=== PATIENT | female | born 1985 | race Caucasian/White ===

== ENCOUNTER 2021-11-13 08:42 | Emergency (ER) | payer MEDICAID ==
[~2021-11-13] VITALS: Ht 160 cm; Wt 87.3 kg
[~2021-11-13 08:42] MED LIST: ALB0.5UD IH; BENZ1LOZ30 PO; BISA10SU60 RC; BUDE10.23 IH; CEPH-571 PO; CLA10T PO; CLIN-97 PO; FLUT10SP; HYDR-4383 PO; LEVA15HF4 IH; LIDO20SO PO; ONDA4TAB6 PO; ONDA8TAB9 PO; RANI-366 PO
[2021-11-13 12:10] VITALS: BP 114/72
[2021-11-13] MEDS ORDERED: dexamethasone 4mg tablet PO ONE (12:10)
[2021-11-13] MEDS ORDERED: ipratropium/albuterol 3ml nebule NEB PRN (12:10)
[2021-11-13] MEDS ORDERED: ALBUTEROL INHALER 1 PUFF/90 MCG INHALation IH PRN (13:20)
[2021-11-13] MEDS ORDERED: PRED20TA PO (13:43)
[2021-11-13] MEDS ORDERED: ALB0.5UD IH (13:43)
[2021-11-13] MEDS ORDERED: ATR0.5NEB IH (13:43)
== END 2021-11-13 13:54 | disposition home or self-care (01) ==
LOC: ER 08:43
DX: U07.1 COVID-19 (principal); J45.909 Unspecified asthma, uncomplicated; G89.29 Other chronic pain; M54.50 Low back pain, unspecified; F12.90 Cannabis use, unspecified, uncomplicated; Z98.51 Tubal ligation status; Z88.0 Allergy status to penicillin
CPT/HCPCS: 71045; 87811; 94640; 94760; 99284

== ENCOUNTER 2022-07-28 21:34 | Emergency (ER) | payer MEDICAID ==
[~2022-07-28] VITALS: Ht 160 cm; Wt 86.4 kg
[~2022-07-28 21:34] MED LIST changes: +ATR0.5NEB IH
[2022-07-28 21:44] VITALS: BP 182/89
[2022-07-28] MEDS ORDERED: clindamycin 150mg capsule PO ONE (22:15)
[2022-07-28] MEDS ORDERED: oxyCODONE/APAP 10/325mg tablet PO ONE (22:15)
[2022-07-28] MEDS ORDERED: ketorolac tromethamine 15mg/ml inj. IM ONE (22:15)
[2022-07-28] MEDS ORDERED: CLIN-142 PO (22:31)
[2022-07-29] MEDS ORDERED: OXYC-150 PO (15:42)
== END 2022-07-28 23:14 | disposition home or self-care (01) ==
LOC: ER 21:35
DX: K08.89 Other specified disorders of teeth and supporting structures (principal); G89.29 Other chronic pain; M54.9 Dorsalgia, unspecified; J45.909 Unspecified asthma, uncomplicated; F12.10 Cannabis abuse, uncomplicated; Z87.81 Personal history of (healed) traumatic fracture; Z88.0 Allergy status to penicillin; Z79.899 Other long term (current) drug therapy; Z79.1 Long term (current) use of non-steroidal anti-inflammatories (NSAID); Z79.2 Long term (current) use of antibiotics
CPT/HCPCS: 96372; 99283; J1885

== ENCOUNTER 2022-07-29 13:34 | Emergency (ER) | payer MEDICAID ==
[~2022-07-29] VITALS: Ht 160 cm; Wt 84.1 kg
[~2022-07-29 13:34] MED LIST changes: +CLIN-142 PO
[2022-07-29 13:39] VITALS: BP 166/102
[2022-07-29] MEDS ORDERED: oxyCODONE/APAP 10/325mg tablet PO ONE (15:30)
[2022-07-29] MEDS ORDERED: ketorolac trometh. 30mg/ml inj. IM ONE (15:30)
[2022-07-29] MEDS ORDERED: OXYC-150 PO (15:42)
[2022-07-30] MEDS ORDERED: CEPH250T PO (17:15)
[2022-07-30] MEDS ORDERED: NAPR-56 PO (17:15)
== END 2022-07-29 15:48 | disposition home or self-care (01) ==
LOC: ER 13:35
DX: K04.7 Periapical abscess without sinus (principal); K08.89 Other specified disorders of teeth and supporting structures; J45.909 Unspecified asthma, uncomplicated; F12.90 Cannabis use, unspecified, uncomplicated; Z88.0 Allergy status to penicillin; Z98.51 Tubal ligation status
CPT/HCPCS: 96372; 99283; J1885

== ENCOUNTER 2022-07-30 15:51 | Emergency (ER) | payer MEDICAID ==
[~2022-07-30] VITALS: Ht 160 cm; Wt 88.6 kg
[~2022-07-30 15:51] MED LIST changes: +OXYC-150 PO
[2022-07-30 16:01] VITALS: BP 148/98
[2022-07-30] MEDS ORDERED: NAPR-56 PO (17:15)
[2022-07-30] MEDS ORDERED: CEPH250T PO (17:15)
== END 2022-07-30 17:24 | disposition home or self-care (01) ==
LOC: ER 15:52
DX: K04.7 Periapical abscess without sinus (principal); J45.909 Unspecified asthma, uncomplicated; G89.29 Other chronic pain; F12.90 Cannabis use, unspecified, uncomplicated; Z72.89 Other problems related to lifestyle; Z98.51 Tubal ligation status; Z88.0 Allergy status to penicillin; Z79.899 Other long term (current) drug therapy
CPT/HCPCS: 99283

== ENCOUNTER 2023-07-23 19:58 | Emergency (ER) | payer MEDICAID ==
[~2023-07-23] VITALS: Ht 160 cm; Wt 75.0 kg
[~2023-07-23 19:58] MED LIST changes: -CLIN-142 PO
[2023-07-23 20:36] VITALS: BP 116/85; PULSE 107; RESP 18; TEMP 98.3; O2SAT 97
== END 2023-07-23 23:06 | disposition left against medical advice (07) ==
LOC: ER 19:59
DX: K04.7 Periapical abscess without sinus (principal); Z53.21 Procedure and treatment not carried out due to patient leaving prior to being seen by health care provider

== ENCOUNTER 2024-07-10 15:42 | Emergency (ER) | payer MEDICAID ==
[~2024-07-10] VITALS: Ht 160 cm; Wt 78.1 kg
[2024-07-10 15:53] VITALS: BP 117/77; PULSE 68; RESP 16; TEMP 98.4; O2SAT 98
[2024-07-10] MEDS ORDERED: AZIT250T29 PO (16:52)
[2024-07-10] MEDS: azithromycin 250mg tablet PO ONE (16:54)
== END 2024-07-10 17:05 | disposition home or self-care (01) ==
LOC: ER 15:42
DX: K04.7 Periapical abscess without sinus (principal); J45.909 Unspecified asthma, uncomplicated; F12.90 Cannabis use, unspecified, uncomplicated; Z88.0 Allergy status to penicillin; Z88.1 Allergy status to other antibiotic agents; Z88.8 Allergy status to other drugs, medicaments and biological substances; Z98.51 Tubal ligation status
CPT/HCPCS: 99283

== ENCOUNTER 2024-12-07 09:53 | Emergency (ER) | payer MEDICAID ==
[~2024-12-07] VITALS: Ht 160 cm; Wt 77.3 kg
[~2024-12-07 09:53] MED LIST changes: +CLIN-224 PO; -CLIN-97 PO
[2024-12-07 10:07] VITALS: BP 140/89; PULSE 92; RESP 16; O2SAT 99
[2024-12-07] MEDS ORDERED: CLIN300C3 PO (11:40)
--- NOTE | 2024-12-07 11:40 | Physician Documentation ---
HPI ~ General Chief Complaint: Tooth Problem Stated Complaint: TOOTH PAIN Time Seen by MD: 10:47 Primary Medical Doctor: vivienne lopez History of Present Illness HPI Comment 39-year-old female presents to the ED with a complaint of tooth infection secondary to previous carry and general poor dentition. She denies any nausea or vomiting or fevers. Medication Reconciliation Allergies: Coded Allergies: Penicillins (Verified Allergy, Unknown, 12/07/24) cephalexin (Unverified Allergy, Unknown, 12/07/24) Scheduled Albuterol Sulfate Nebs* (Proventil Nebs*), 2.5 MG IH Q4H, (Reported) Bisacodyl (Dulcolax), 1 SUPP RC DAILY Cephalexin (Keflex), 1 CAP PO Q6H Clindamycin HCL* (Clindamycin HCL*), 1 CAP PO Q6H Clindamycin HCL* (Clindamycin HCL*), 1 CAP PO Q6H Ipratropium Nelson (Atrovent Neb), 0.5 MG IH Q4H Levalbuterol Tartrate* (Xopenex Inhaler*), 2 PUFF IH Q4H, (Reported) Lidocaine Hcl (Lidocaine Hcl Viscous), 15 ML PO Q6H Loratadine* (Claritin*), 10 MG PO DAILY, (Reported) Ondansetron (Zofran Odt), 4 MG PO QID Ranitidine Hcl (Zantac), 150 MG PO DAILY Scheduled PRN Benzocaine/Menthol (Chloraseptic Sore Throat Lozng), 1 SABRINA PO Q2H PRN for throat pain Hydrocodone/Acetaminophen ([place] 5-325 Tablet), 1 TABLET PO TID PRN for pain Ondansetron Hcl (Zofran), 1 TAB PO Q6H PRN for nausea Oxycodone HCl/Acetaminophen (Percocet 10-325 mg Tablet), 1 TAB PO TID PRN PRN for dental pain Miscellaneous Medications Budesonide/Formoterol Fumarate (Symbicort 160-4.5 Mcg Inhaler), 10.2 GM IH, (Reported) Fluticasone Furoate (Veramyst), (Reported) Past Medical History Past Medical History: Asthma, Chronic Back Pain, Extremity Fracture Past Surgical History: tubal ligation Alcohol Use: Sober Drug Use: marijuana Lives with: Family Lives In: Home Occupation: employed Review of Systems All Other Systems at this time: Reviewed and Negative ROS As stated above in the HPI, otherwise all systems are reviewed and negative. Physical Exam Vital Signs: Temperature: 98.4, Source: Temporal, Heart Rate: 92, Respiratory Rate: 16, BP: 140/89, Pulse Oximetry: 99, Weight: 77.270 Oxygen Flow Rate: 0 Physical Exam General: Alert, no apparent distress. HEENT: PERRL, EOMI, no injection, moist mucous membranes. Swelling in the bottom left molar region poor dentition throughout oral cavity notable caries and fractured teeth Neck: Full range of motion. Neurologic: Oriented x4. Psychiatric: Normal mood and affect. Skin: Normal color, warm and dry. No edema, no ecchymosis. Progress Results/Orders Results/Orders Orders - AZAEL NEGRON NP Clindamycin Capsule (Cleocin Capsule) (12/07/24 11:40) Vital Signs 12/07/24 10:07 Temp 98.4 Pulse 92 Resp 16 B/P (MAP) 140/89 Pulse Ox 99 O2 Flow Rate 0 Medical Decision Making Findings Patient is hemodynamically stable and has a developing tooth infection. Needs to follow up with a dentist in order to have the affected tooth extracted. In the meantime I am going to treat her with clindamycin for broad coverage. 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 Differential Dx:Considerations: Include: Alveolar fracture, Alveolar osteitis, ANUG, Facial Cellulitis, Periapical abscess, Peridontal abscess, Post-extraction bleeding, Pulpitis, Tooth avulsion, Tooth eruption, Tooth Fracture, Trigeminal neuralgia, Tooth subluxation, Other Departure Disposition: HOME / SELF CARE / HOMELESS Impression: Primary Impression: Toothache Additional Impressions: Dental caries Dental abscess Condition: Stable Discharge Instructions: Dental Abscess Referrals: NO PRIMARY CARE PROVIDER (PCP) Prescriptions Clindamycin HCl (Cleocin HCl) 300 Mg Capsule 1 CAP PO Q12H for 7 Days, #14 CAP Prov: AZAEL NEGRON NP 12/07/24 Education Educated: Patient Educated regarding: diagnosis Signature Scribe Signature: g Attestation: Scribed for Azael Negron Np by Azael Merlos NP . 12/07/24 11:39 AZAEL NEGRON NP Dec 07, 2024 11:40
[2024-12-07 12:24] VITALS: TEMP 98.4
== END 2024-12-07 12:26 | disposition home or self-care (01) ==
LOC: ER 09:54
DX: K02.9 Dental caries, unspecified (principal); K04.7 Periapical abscess without sinus; J45.909 Unspecified asthma, uncomplicated; F12.90 Cannabis use, unspecified, uncomplicated; G89.29 Other chronic pain; Z88.0 Allergy status to penicillin; Z88.1 Allergy status to other antibiotic agents; Z98.51 Tubal ligation status; Z79.899 Other long term (current) drug therapy
CPT/HCPCS: 99283